=== PATIENT | female | born 1990 | race African-American/Black ===

== ENCOUNTER 2021-08-15 16:49 | Observation (INO) ==
[2021-08-15 18:22] LABS: Mean Corpuscular Hgb Conc 36.3 g/dL (32-36)
[2021-08-15] MEDS ORDERED: ONDANSETRON INJ 2 MG/ML 2 ML VIAL IV STA (18:49)
[2021-08-15] MEDS ORDERED: ALBUTEROL HFA 8 GM INHALER INH ONE (18:49)
[2021-08-15] MEDS ORDERED: SODIUM CHLORIDE 0.9% 1000ML 1,000 ML IV ONE (18:49)
[2021-08-15] MEDS ORDERED: ACETAMINOPHEN 1000 MG/100 ML IV IV STA (18:49)
[2021-08-15 18:54] LABS: Hematocrit (blood only) 29.5 % (37-47); Hemoglobin 10.7 g/dL (12.0-16.0); Mean Corpuscular Hemoglobin 27.6 pg (25-34); RDW Coefficient of Variation 15.1 % (11.5-14.5); RDW Standard Deviation 42.6 fL (36.4-46.3); Red Blood Count 3.88 M/uL (4.2-5.4); White Blood Count 6.75 K/uL (4.8-10.8)
--- NOTE | 2021-08-15 19:00 | Emergency Department Note ---
Impression & Plan Vomiting, Acute dehydration, COVID-19, ED Provider Note NAME: FRANDY ONEIL AGE: 31 SEX: F : 1990 ARRIVES VIA: Walk-In INFORMANT: [Patient] ED PROVIDER(S): [Haim Oconnor MD] CHIEF COMPLAINT: Illness HISTORY OF PRESENT ILLNESS: The patient is a 31-year-old female who has felt poorly for today. She has had a headache, body aches, chills and a bit of a cough. She has been vomiting. The patient is currently 17 weeks . The patient went to [employer], there was nothing wrong with her unborn child. She was sent here for evaluation after a urinalysis and COVID test were performed. The urinalysis was negative, the COVID test was positive. The patient is not vaccinated for COVID-19. The patient has had no sick contacts. She states that she cannot go home feeling this poorly. REVIEW OF SYSTEMS: See HPI for pertinent positives and negatives. A total of ten systems were reviewed and were otherwise negative. PMHx/PSHx: See Below SOCIAL HISTORY: See Below. PHYSICAL EXAM: GENERAL: Patient is in no acute distress. HEENT: No acute trauma, normocephalic atraumatic, mucous membranes moist, no nasal congestion, no scleral icterus. NECK: No stridor, no adenopathy, no meningismus, trachea is midline. LUNGS: Diminished breath sounds, no respiratory distress, breath sounds equal. No obvious wheeze. HEART: Tachycardic, subtle systolic murmur, regular rhythm. ABDOMEN: Soft, nontender, bowel sounds positive, no peritonitis. Gravid uterus. EXTREMITIES: No cyanosis or edema, full range of motion of all the joints withou t pain or difficulty, no signs for acute trauma. NEUROLOGIC: Oriented x 3, no acute motor or sensory deficits, no focal weakness. SKIN: No rash, no jaundice, no diaphoresis. DIFFERENTIAL DIAGNOSIS: Generalized viral illness, influenza, COVID-19, electrolyte imbalance, dehydrati on, UTI, pneumonia, among others. EMERGENCY DEPARTMENT COURSE/PROCEDURES: MEDICAL DECISION MAKING: There is no leukocytosis. A very mild anemia was noted. Platelet count was slightly low at 103, the lower platelet count has been documented before. Sodium was somewhat low at 133, no renal failure. No concerning liver enzyme elevation. Cardiac enzyme testing x1 did not suggest any acute cardiac injury. Chest film did not show pneumonia or CHF. On exam, the patient was tachycardic. She looked uncomfortable. She appeared dehydrated. Her uterus was gravid. The patient was given 2 L of IV saline, she received IV Zofran, IV Benadryl, IV Tylenol and albuterol via MDI. The patient is still tachycardic and feels poorly. She does not believe she can be discharged home in this condition. The COVID infection, her early , together have become overwhelming. The patient is in need of a hospital stay for hydration, nausea control, symptom control. Luckily, she is not hypoxic and does not appear to have pneumonia from her COVID-19 infection. I spoke with the patient and case management. The on-call hospitalist was kaveh onsulted. Past Med/Surg History Medical History Migraine Multigravida Prior with demise Full Term demise in 2009 Sickle cell trait Surgical History No significant past surgical history Social History Smoking Status: Former smoker Tobacco Type: Cigarettes Hx Alcohol Use: No Hx Substance Use: No Preferred Language: Persian marital status: Single Current Living Situation: Family Feels Safe at Home: Yes Allergies Allergies Allergy/AdvReac Type Severity Reaction Status Date / Time ibuprofen [From Motrin] Allergy Severe hives/throat Verified 08/15/21 21:41 [facility] Home Meds Home Medications Medication Instructions Recorded Confirmed clindamycin phosphate 1 % topical 1 applic TOPICAL BID 08/15/21 08/15/21 gel Results & Data (ED) Vital Signs Vital Signs - 24 hr 08/15/21 17:23 08/15/21 20:29 08/15/21 22:00 Temperature 38.8 C H Temperature Source Oral Pulse Rate 115 H Pulse Rate [Right Finger] 121 H 124 H Respiratory Rate 18 18 20 Respiratory Effort / Characteristics Non-Labored Non-Labored Respiratory Depth Normal Normal Normal Blood Pressure 95/57 L Blood Pressure [Right Arm] 109/66 120/82 Blood Pressure Mean 69 Blood Pressure Mean [Right Arm] 80 94 Pulse Oximetry 98 97 99 Oxygen Delivery Method Room Air Room Air Room Air Sepsis Recent Fever Within 48 Hours Yes Sepsis New/Unexplained Change in Mental Status No Sepsis Action Taken by Nursing No Action Required Home Medications Current Medication List: was personally reviewed by me Laboratory Data Attestation: I reviewed the patient's lab results. Result diagrams: 08/15/21 18:00 08/15/21 18:00 Lab Results 08/15/21 08/15/21 Range/Units 18:00 18:00 WBC 6.75 (4.8-10.8) K/uL RBC 3.88 L (4.2-5.4) M/uL Hgb 10.7 L (12.0-16.0) g/dL Hct 29.5 L (37-47) % MCV 76.0 L (80-100) fL MCH 27.6 (25-34) pg MCHC 36.3 H (32-36) g/dL RDW Std Deviation 42.6 (36.4-46.3) fL RDW Coeff of Riana 15.1 H (11.5-14.5) % Plt Count 103 L (130-400) K/uL Immature Gran % (Auto) 0.3 % Neut % (Auto) 87.7 % Lymph % (Auto) 8.3 % [place] % (Auto) 2.8 % Eos % (Auto) 0.9 % Baso % (Auto) 0.0 % Neut # (Auto) 5.92 (1.4-6.5) K/uL Lymph # (Auto) 0.56 L (1.2-3.4) K/uL [place] # (Auto) 0.19 (0.11-0.59) K/uL Eos # (Auto) 0.06 (0-0.5) K/uL Baso # (Auto) 0.00 (0-0.2) K/uL Immature Gran # (Auto) 0.02 (0.00-0.02) K/uL Platelet Estimate Decreased L (Normal) Sodium 133 L (136-145) mmol/L Potassium 3.8 (3.5-5.1) mmol/L Chloride 103 (98-107) mmol/L Carbon Dioxide 22 (21-32) mmol/L Anion Gap 8 (3-11) BUN 8 (6-23) mg/dl Creatinine 0.52 L (0.6-1.2) mg/dl Est Cr Clr Drug Dosing Not Reportable Est GFR ( Amer) 145.5 ml/min Est GFR (Non-Af Amer) 125.5 ml/min BUN/Creatinine Ratio 15.4 (10-20) Glucose 95 (70-99(Fasting)) mg/dl Calcium 8.5 (8.5-10.1) mg/dl Total Bilirubin 0.3 (0.2-1.0) mg/dl AST 11 L (13-39) U/L ALT 7 (7-52) U/L Alkaline Phosphatase 40 (34-104) U/L Troponin I High Sens < 2.3 (0-14) pg/ml Total Protein 6.6 (6.0-8.3) gm/dl Albumin 3.5 (3.4-5.0) gm/dl Globulin 3.1 (2.5-4.0) gm/dl Albumin/Globulin Ratio 1.1 (0.9-2) Administered Medications Sodium Chloride (Nss 1000ml) 500 mls @ 999 mls/hr IV .Q31M ONE Stop: 08/15/21 22:02 Last Admin: 08/15/21 21:54 Dose: 999 mls/hr Documented by: [id number] Discontinued Medications Acetaminophen (Acetaminophen 1000 Mg/100 Ml Iv) 1,000 mg IV NOW STA Stop: 08/15/21 18:50 Last Admin: 08/15/21 19:01 Dose: 1,000 mg Documented by: [id number] Albuterol (Albuterol Hfa 8 Gm Inhaler) 2 puffs INH NOW ONE Stop: 08/15/21 18:50 Last Admin: 08/15/21 19:02 Dose: 2 puffs Documented by: [id number] Diphenhydramine HCl (Diphenhydramine 50 Mg/Ml Vial) 12.5 mg IV NOW STA Stop: 08/15/21 21:33 Last Admin: 08/15/21 21:59 Dose: 12.5 mg Documented by: [id number] Sodium Chloride (Nss 1000ml) 1,000 mls @ 999 mls/hr IV .Q1H1M ONE Stop: 08/15/21 19:49 Last Infusion: 08/15/21 20:21 Dose: 0 mls/hr Documented by: [id number] Admin: 08/15/21 19:02 Dose: 999 mls/hr Documented by: [id number] Sodium Chloride (Nss 1000ml) 500 mls @ 999 mls/hr IV .Q31M ONE Stop: 08/15/21 20:44 Last Infusion: 08/15/21 21:48 Dose: 0 mls/hr Documented by: [id number] Admin: 08/15/21 20:56 Dose: 999 mls/hr Documented by: [id number] Ondansetron HCl (Ondansetron Inj 2 Mg/Ml 2 Ml Vial) 4 mg IV NOW STA Stop: 08/15/21 18:50 Last Admin: 08/15/21 19:02 Dose: 4 mg Documented by: [id number] Imaging Data Radiologist's Impression: Chest X-Ray 08/15/21 18:41 SINGLE VIEW CHEST CLINICAL HISTORY: Fever. FINDINGS: An AP, portable, upright chest radiograph is obtained. No prior studies are available for comparison at the time of dictation. The cardiom ediastinal silhouette is unremarkable. The lungs and pleural spaces are clear. No pneumothorax is seen. The bony thorax is grossly intact. IMPRESSION: No active disease in the chest. ACT 112: Negative or not required by law. Electronically signed by: Haim Arndt M.D. 08/15/2021 7:43 PM Discharge Plan Visit Data Chief Complaint: Illness Stated Complaint: VOMITING, COVID PENDING, FEVER ED Provider: Haim Oconnor Discharge Problem: Vomiting, Acute dehydration, COVID-19, Patient Disposition: Admitted As Inpatient Condition: Fair Forms Stand Alone Forms: [facility] [employer] Prescriptions Prescriptions: No Action clindamycin phosphate 1 % gel 1 applic TOPICAL BID RF: 0 Referrals Referrals: PCP,NO [Primary Care Provider] -
[2021-08-15 19:01] LABS: Eosinophils # (auto) 0.06 K/uL (0-0.5); Eosinophils % (auto) 0.9 %; Immature Granulocytes # (auto) 0.02 K/uL (0.00-0.02); Immature Granulocytes % (auto) 0.3 %; Lymphocytes # (auto) 0.56 K/uL (1.2-3.4); Lymphocytes % (auto) 8.3 %; Monocytes # (auto) 0.19 K/uL (0.11-0.59); Monocytes % (auto) 2.8 %; Neutrophils # (auto) 5.92 K/uL (1.4-6.5); Neutrophils % (auto) 87.7 %; Platelet Count 103 K/uL (130-400); Platelet Estimate Decreased (Normal)
[2021-08-15 19:35] LABS: Alanine Aminotransferase 7 U/L (7-52); Albumin Globulin Ratio 1.1 (0.9-2); Albumin Level 3.5 gm/dl (3.4-5.0); Alkaline Phosphatase 40 U/L (34-104); Anion Gap 8 (3-11); Aspartate Aminotransferase 11 U/L (13-39); BUN Creatinine Ratio 15.4 (10-20); Bilirubin,Total 0.3 mg/dl (0.2-1.0); Blood Urea Nitrogen 8 mg/dl (6-23); Calcium 8.5 mg/dl (8.5-10.1); Carbon Dioxide 22 mmol/L (21-32); Chloride 103 mmol/L (98-107); Est GFR (African American) 145.5 ml/min; Est GFR (Non-African American) 125.5 ml/min; Globulin 3.1 gm/dl (2.5-4.0); Glucose 95 mg/dl (70-99(Fasting)); Potassium 3.8 mmol/L (3.5-5.1); Sodium 133 mmol/L (136-145); Total Protein 6.6 gm/dl (6.0-8.3); Troponin I High Sensitivity < 2.3 pg/ml (0-14)
--- NOTE | 2021-08-15 19:45 | XRay Report ---
SINGLE VIEW CHEST CLINICAL HISTORY: Fever. FINDINGS: An AP, portable, upright chest radiograph is obtained. No prior studies are available for c omparison at the time of dictation. The cardiomediastinal silhouette is unremarkable. The lungs and p leural spaces are clear. No pneumothorax is seen. The bony thorax is grossly intact. IMPRESSION: No active disease in the chest. ACT 112: Negative or not required by law. Electronically signed by: Haim Arndt M.D. 08/15/2021 7:43 PM
[2021-08-15] MEDS ORDERED: SODIUM CHLORIDE 0.9% 1000ML 500 ML IV ONE ×2 (20:14→21:32)
[2021-08-15] MEDS ORDERED: diphenhydrAMINE 50 MG/ML VIAL IV STA (21:32)
[2021-08-15] MEDS ORDERED: LACTATED RINGER'S 1,000 ML IV STA (21:58)
[2021-08-15] MEDS ORDERED: ACETAMINOPHEN W/CODEINE #3 1 TAB PO STA (23:08)
[2021-08-16 00:51] LABS: Partial Thromboplastin Ratio 1.1; Partial Thromboplastin Time 29.3 Seconds (21.0-31.0)
--- NOTE | 2021-08-16 01:03 | History & Physical Report ---
Date of Service August 16, 2021 Assessment & Plan (1) Sepsis: Plan: Secondary to COVID-19 illness 17 weeks AGA, patient already seen by OB outpatient Chronic anemia, hemoglobin at baseline Chronic thrombocytopenia Past tobacco abuse Medical telemetry No indication for antibiotics/antiviral Rx/steroids for now Supportive management for COVID-19 illness DVT prophylaxis. SCDs Re: Thrombocytopenia Full code Text document was generated using MyStream voice recognition software. It may contain grammatical or spelling errors. Kindly contact undersigned for clarification of any documentation item in question. History of Present Illness Chief Complaint: Achy, COVID Primary Care Provider: Dr. Carbajal History obtained from patient and records. Medical history significant for sickle cell trait, past tobacco abuse. Patient currently 17 weeks age of gestation. 2 days history of not feeling well. Achy headache, body aches, chills, dry cough. Pleuritic chest pain with shortness of breath. Achy lower abdominal pain. 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 Patient has not received COVID-19 vaccination. Patient seen by lower in supervisor yesterday. Directed to ER for further evaluation. 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 Allergies Allergy/AdvReac Type Severity Reaction Status Date / Time ibuprofen [From Motrin] Allergy Severe hives/throat Verified 08/15/21 21:41 [facility] Home Medications Medication Instructions Recorded Confirmed Type clindamycin phosphate 1 % topical 1 applic TOPICAL BID 08/15/21 08/15/21 History gel Past Med/Surg History Medical History Migraine Multigravida Prior with demise Full Term demise in 2009 Sickle cell trait Surgical History No significant past surgical history Social History Smoking Status: Former smoker Tobacco Type: Cigarettes Second Hand Exposure: No; Do You Dip or Chew Tobacco: No; Tobacco Cessation Education Requested by Patient: No Hx Alcohol Use: No Hx Substance Use: No Preferred Language: Georgian Communication Ability: Effective [employer] Ha[employer] Feeder Required: No Beliefs That Will Affect Care: None marital status: Single Current Living Situation: Alone Current Living Situation Comment: Pt states it is just her and her children Other Information That Helps Us Care for You: No Feels Safe at Home: Yes Safety Concerns: Feels Safe At This Time Assistive Devices: None Review of Systems Review of Systems: As per HPI, all other systems reviewed and negative Physical Exam Physical Exam: GENERAL: uncomfortable, no respiratory distress SKIN: Pallor, warm HEENT: Pale palpebral conjunctivae, no ptosis, dry buccal mucosa NECK : Supple, no tenderness CHEST : CTA, no tenderness HEART : Tachycardic, no obvious murmurs ABDOMEN: Some distention, minimal hypogastric tenderness EXTREMITIES : No LE swelling/tenderness, no other conspicuous deformities noted NEUROLOGIC : Coherent, no facial asymmetry, no other gross focality Results & Data Results & [facility] ([facility]) Vital Signs (Past 12 Hours) Vital Signs Temp Pulse Pulse Resp BP BP Pulse Ox 08/15/21 22:00 124 H 20 120/82 99 08/15/21 20:29 121 H 18 109/66 97 08/15/21 17:23 38.8 C H 115 H 18 95/57 L 98 Laboratory Results Laboratory Results WBC 6.75 K/uL (4.8-10.8) 08/15/21 18:00 RBC 3.88 M/uL (4.2-5.4) L 08/15/21 18:00 Hgb 10.7 g/dL (12.0-16.0) L 08/15/21 18:00 Hct 29.5 % (37-47) L 08/15/21 18:00 MCV 76.0 fL (80-100) L 08/15/21 18:00 MCH 27.6 pg (25-34) 08/15/21 18:00 MCHC 36.3 g/dL (32-36) H 08/15/21 18:00 RDW Std Deviation 42.6 fL (36.4-46.3) 08/15/21 18:00 RDW Coeff of Riana 15.1 % (11.5-14.5) H 08/15/21 18:00 Plt Count 103 K/uL (130-400) L 08/15/21 18:00 Immature Gran % (Auto) 0.3 % 08/15/21 18:00 Neut % (Auto) 87.7 % 08/15/21 18:00 Lymph % (Auto) 8.3 % 08/15/21 18:00 [place] % (Auto) 2.8 % 08/15/21 18:00 Eos % (Auto) 0.9 % 08/15/21 18:00 Baso % (Auto) 0.0 % 08/15/21 18:00 Neut # (Auto) 5.92 K/uL (1.4-6.5) 08/15/21 18:00 Lymph # (Auto) 0.56 K/uL (1.2-3.4) L 08/15/21 18:00 [place] # (Auto) 0.19 K/uL (0.11-0.59) 08/15/21 18:00 Eos # (Auto) 0.06 K/uL (0-0.5) 08/15/21 18:00 Baso # (Auto) 0.00 K/uL (0-0.2) 08/15/21 18:00 Immature Gran # (Auto) 0.02 K/uL (0.00-0.02) 08/15/21 18:00 Platelet Estimate Decreased (Normal) L 08/15/21 18:00 APTT 29.3 Seconds (21.0-31.0) 08/16/21 00:16 PTT Ratio 1.1 08/16/21 00:16 Sodium 133 mmol/L (136-145) L 08/15/21 18:00 Potassium 3.8 mmol/L (3.5-5.1) 08/15/21 18:00 Chloride 103 mmol/L (98-107) 08/15/21 18:00 Carbon Dioxide 22 mmol/L (21-32) 08/15/21 18:00 Anion Gap 8 (3-11) 08/15/21 18:00 BUN 8 mg/dl (6-23) 08/15/21 18:00 Creatinine 0.52 mg/dl (0.6-1.2) L 08/15/21 18:00 Est Cr Clr Drug Dosing Not Reportable 08/15/21 18:00 Est GFR ( Amer) 145.5 ml/min 08/15/21 18:00 Est GFR (Non-Af Amer) 125.5 ml/min 08/15/21 18:00 BUN/Creatinine Ratio 15.4 (10-20) 08/15/21 18:00 Glucose 95 mg/dl (70-99(Fasting)) 08/15/21 18:00 Lactate 1.1 mmol/L (0.4-2.0) 08/16/21 00:16 Calcium 8.5 mg/dl (8.5-10.1) 08/15/21 18:00 Magnesium 1.5 mg/dl (1.7-2.4) L 08/15/21 18:00 Total Bilirubin 0.3 mg/dl (0.2-1.0) 08/15/21 18:00 AST 11 U/L (13-39) L 08/15/21 18:00 ALT 7 U/L (7-52) 08/15/21 18:00 Alkaline Phosphatase 40 U/L (34-104) 08/15/21 18:00 Troponin I High Sens < 2.3 pg/ml (0-14) 08/15/21 18:00 Total Protein 6.6 gm/dl (6.0-8.3) 08/15/21 18:00 Albumin 3.5 gm/dl (3.4-5.0) 08/15/21 18:00 Globulin 3.1 gm/dl (2.5-4.0) 08/15/21 18:00 Albumin/Globulin Ratio 1.1 (0.9-2) 08/15/21 18:00 Lipase 8 U/L (11-82) L 08/15/21 18:00 Procalcitonin < 0.05 ng/ml (0-0.5) 08/15/21 18:00 Impressions Chest X-Ray 08/15/21 18:41 SINGLE VIEW CHEST CLINICAL HISTORY: Fever. FINDINGS: An AP, portable, upright chest radiograph is obtained. No prior studies are available for comparison at the time of dictation. The cardiomediastinal silhouette is unremarkable. The lungs and pleural spaces are clear. No pneumothorax is seen. The bony thorax is grossly intact. IMPRESSION: No active disease in the chest. ACT 112: Negative or not required by law. Electronically signed by: Haim Arndt M.D. 08/15/2021 7:[address] head initial read: No intracranial hemorrhage. No significant mass effect or midline shift. No evidence for cortical infarct. The paranasal sinuses and mastoid air cells are well-aerate CT chest initial read: Accounting for limitationswith respiratoryartifact. There is no obvious large/central pulmonary emboli. Evaluation of the distal subsegmental pulmonaryarteries is limited with the majority nondiagnostic in quality. No focal airspace consolidation. No pleural effusion or pneumothorax. The thoracic aorta and cardiac chambers are unremarkable. No pericardial effusion. Nonspecific subcentimeter preaortic lymph nodes. No significant mediastinal or hilar adenopathy. No acute osseous or significant overlying soft tissue abnormality CT abdomen pelvis refused by patient EKG as per my interpretation:Rate 125, sinus tachycardia, normal axis, no ischemia
[2021-08-16] MEDS ORDERED: OPTIRAY 320 125ml IV ONE (01:10)
[2021-08-16] MEDS ORDERED: LACTATED RINGER'S 1,000 ML IV ONE ×2 (04:23→19:17)
[2021-08-16] MEDS ORDERED: ONDANSETRON INJ 2 MG/ML 2 ML VIAL IV PRN (04:23)
[2021-08-16] MEDS: ACETAMINOPHEN 325 MG TAB PO PRN ×3 (05:07→19:29)
[2021-08-16 06:48] LABS: Appearance Urine Clear (Clear); Bilirubin Urine Negative (Negative); Blood Urine Negative (Negative); Color Urine Yellow; Glucose Urine UA Negative (Negative); Ketones Urine 2+ (Negative); Leukocyte Esterase Urine Negative (Negative); Nitrite Urine Negative (Negative); Protein Urine Negative (Negative); Specific Gravity Urine 1.025 (1.000-1.030); Urobilinogen Urine Negative (Negative); pH Urine 6.5 (4.5-7.5)
--- NOTE | 2021-08-16 07:02 | CT Scan Report ---
CT OF THE HEAD WITHOUT CONTRAST CLINICAL HISTORY: Headache. COMPARISON STUDY: No previous studies for comparison. TECHNIQUE: Helical axial images of the head were obtained without IV contrast. Automated exposure con trol was utilized for the study. A dose lowering technique was utilized adhering to the principles o f ALARA. FINDINGS: Study is mildly compromised by motion artifact. No acute intracranial hemorrhage, midline s hift or mass effect is present. The ventricular system is unremarkable. The basal cisterns are patent . No extra-axial collections are present. There are no findings to suggest acute dural sinus thrombos is or acute territorial infarct. No significant calvarial abnormalities are present. There is minimal ethmoid sinus mucosal thickening. Visualized portions of the adenoids are prominent. IMPRESSION: No acute intracranial findings. ACT 112: Negative or not required by law. Electronically signed by: Howard Valerio M.D. 08/16/2021 7:00 AM
[2021-08-16 07:07] LABS: Mean Corpuscular Hgb Conc 36.1 g/dL (32-36)
--- NOTE | 2021-08-16 07:13 | CT Scan Report ---
CT ANGIOGRAPHY OF THE CHEST, PULMONARY EMBOLUS PROTOCOL CLINICAL HISTORY: Chest pain. Shortness of breath. . COMPARISON STUDY: Chest radiograph August 15, 2021. TECHNIQUE: Following IV administration of 110 mL of Optiray, helical axial images of the chest were o btained utilizing the pulmonary embolus protocol. Maximal intensity projections and sagittal and cor onal reformats were viewed on an independent 3D workstation. IV contrast was administered without co mplication. Automated exposure control was utilized for the study. A dose lowering technique was ut ilized adhering to the principles of ALARA. CT DOSE: 537.48 mGy.cm FINDINGS: This exam is significantly compromised by respiratory motion artifact and suboptimal vascu lar opacification. No central pulmonary embolus is identified. The lobar, segmental and subsegmental pulmonary arteries are suboptimally assessed on this exam. There is no thoracic aortic dissection. Si ze of the heart is normal. Possible small hiatal hernia is present. Prominent mediastinal lymph nodes are likely benign. There is no axillary lymphadenopathy. There is no pneumothorax or pleural effusio n. Groundglass opacities within the lungs favor atelectasis. No consolidation to suggest pneumonia. C entral airways are patent. No acute fracture or suspicious lesion within the visualized bony thorax i s noted. Asymmetric enlargement of the left thyroid lobe is noted. There is a probable left lobe thyr oid nodule which measures approximately 2.6 cm. Visualized portions of the upper abdomen demonstrate splenomegaly, incompletely imaged on this exam. A few hypodensities within the liver favor cysts. IMPRESSION: 1. Exam significantly compromised by artifact, as described above. No central pulmonary emboli. Remai nder of pulmonary arteries suboptimally assessed although no pulmonary emboli identified. 2. No consolidation to suggest pneumonia. 3. Asymmetric enlargement of the left thyroid lobe with suspected left lobe thyroid nodule, measuring approximately 2.6 cm. Nonemergent outpatient thyroid ultrasound is recommended. 4. Splenomegaly. ACT 112: Positive. There are findings on this exam that require communication between the performing entity and the patient following Patient Test Result Information Act ([place] Act 112) guidelines. Electronically signed by: Howard Valerio M.D. 08/16/2021 7:12 AM
[2021-08-16 07:28] LABS: BUN Creatinine Ratio 8.2 (10-20); Calcium 7.6 mg/dl (8.5-10.1); Creatinine Clr Calc Pharmacy 169.5 ml/min; Est GFR (African American) 148.4 ml/min; Magnesium 1.4 mg/dl (1.7-2.4)
[2021-08-16 07:43] LABS: Hematocrit (blood only) 25.5 % (37-47); Hemoglobin 9.2 g/dL (12.0-16.0); Mean Corpuscular Hemoglobin 27.5 pg (25-34); Mean Corpuscular Volume 76.3 fL (80-100); RDW Coefficient of Variation 15.1 % (11.5-14.5); RDW Standard Deviation 42.9 fL (36.4-46.3); Red Blood Count 3.34 M/uL (4.2-5.4)
[2021-08-16 08:22] LABS: Immature Granulocytes # (auto) 0.02 K/uL (0.00-0.02); Immature Granulocytes % (auto) 0.5 %; Lymphocytes # (auto) 0.29 K/uL (1.2-3.4); Lymphocytes % (auto) 7.6 %; Monocytes # (auto) 0.46 K/uL (0.11-0.59); Monocytes % (auto) 12.1 %; Neutrophils # (auto) 3.03 K/uL (1.4-6.5); Neutrophils % (auto) 79.8 %; Platelet Count 71 K/uL (130-400); Platelet Estimate Decreased (Normal)
--- NOTE | 2021-08-16 09:13 | Electrocardiogram Report ---
Test Reason : Blood Pressure : / mmHG Vent. Rate : 124 BPM Atrial Rate : 124 BPM P-R Int : 180 ms QRS Dur : 078 ms QT Int : 284 ms P-R-T Axes : 065 033 025 degrees QTc Int : 408 ms Poor data quality, interpretation may be adversely affected Sinus tachycardia Diffuse Minor Nonspecific T wave abnormality Abnormal ECG No previous ECGs available Confirmed by Prosper Bello ([id number]) on 08/16/2021 9:12:34 AM Referred By: REFERRED SELF Confirmed By:Prosper Bello
[2021-08-16] MEDS ORDERED: POTASSIUM ACETATE/NSS 10 MEQ/105 ML BAG IV STA (14:55)
[2021-08-16] MEDS ORDERED: MAGNESIUM SULFATE / D5W 1 GM/100 ML BAG IV ONE (14:55)
[2021-08-16] MEDS: ACETAMINOPHEN W/CODEINE #3 1 TAB PO PRN ×2 (16:48→22:06)
[2021-08-16] MEDS: POTASSIUM ACETATE/NSS 10 MEQ/105 ML BAG IV SCH ×2 (16:49→19:29)
--- NOTE | 2021-08-16 17:37 | Hospitalist Progress Note ---
Date of Service August 16, 2021 Assessment & Plan (1) Sepsis: Plan: Secondary to COVID-19 illness No known source identified She has had denied any respiratory and recently Loss of taste and loss of smell with cough and sneezing No shortness of breath Saturating normally on room air The patient is not vaccinated No indication for antibiotics/antiviral Rx/steroids for now Supportive management for COVID-19 illness 17 weeks AGA, patient already seen by OB outpatient Chronic anemia, hemoglobin at baseline Chronic thrombocytopenia Past tobacco abuse DVT prophylaxis. SCDs Re: Thrombocytopenia Full code Admission and Anticipated Discharge Date Admission Date: August 16, 2021 Subjective 08/16/2021 The patient was seen and examined in medical floor and in the COVID room She complains of headache and loss of smell and test Has cough with sneezing No shortness of breath and saturating normally on room air Review of Systems Review of Systems: All systems reviewed and are unremarkable except as noted below Physical Exam Physical Exam: Lying in bed without any acute distress Constitutional: well developed, well nourished, + ill appearing and + obese Eyes: PERRL, conjunctivae normal, anicteric sclerae ENMT: external ear and nose normal, oropharynx normal Neck: trachea midline, no thyromegaly Respiratory: no respiratory distress Auscultation: lungs clear to auscultation bilaterally; no crackles Cardiovascular: Rate/Rhythm: regular rate, regular rhythm and + tachycardic Heart Sounds: normal S1 and normal S2; no murmur Extremities: + edema (Trace edema bilaterally) Gastrointestinal (Abdomen): Inspection/Auscultation: + abdomen distended and normal bowel sounds Musculoskeletal: No acute arthritis in any joint Neurologic: Alert, awake and oriented x3. No focal sensory or no motor deficit appreciated Lymphatic: no cervical or axillary lymphadenopathy Results & Data Results & Data ([facility]) Vital Signs (Past 12 Hours) Vital Signs Temp Pulse Pulse Resp BP Pulse Ox 08/16/21 15:30 37.7 C H 118 H 20 120/76 99 08/16/21 14:19 115 H 08/16/21 14:12 37.2 C 20 114/77 98 08/16/21 11:55 37.3 C 111 H 20 103/71 98 08/16/21 10:00 38.3 C H 117 H 20 106/64 99 08/16/21 06:10 125 H Laboratory Results Short CBC 08/15/21 08/16/21 Range/Units 18:00 06:21 WBC 6.75 3.80 L (4.8-10.8) K/uL Hgb 10.7 L 9.2 L (12.0-16.0) g/dL Hct 29.5 L 25.5 L (37-47) % Plt Count 103 L 71 L (130-400) K/uL BMP 08/15/21 08/16/21 18:00 06:21 Sodium 133 L 134 L Potassium 3.8 3.0 L D Chloride 103 107 Carbon Dioxide 22 20 L BUN 8 4 L Creatinine 0.52 L 0.49 L Glucose 95 130 H Calcium 8.5 7.6 L Liver Function 08/15/21 Range/Units 18:00 Total Bilirubin 0.3 (0.2-1.0) mg/dl AST 11 L (13-39) U/L ALT 7 (7-52) U/L Alkaline Phosphatase 40 (34-104) U/L Albumin 3.5 (3.4-5.0) gm/dl Urine 08/16/21 Range/Units 05:57 Urine Color Yellow Urine Appearance Clear (Clear) Urine pH 6.5 (4.5-7.5) Ur Specific [place] 1.025 (1.000-1.030) Urine Protein Negative (Negative) Urine Glucose (UA) Negative (Negative) Medications Administered Current Inpatient Medications Acetaminophen (Acetaminophen 325 Mg Tab) 650 mg PO Q4H PRN PRN Reason: Pain or Fever Stop: 09/15/21 04:22 Last Admin: 08/16/21 10:00 Dose: 650 mg Documented by: Acetaminophen/Codeine Phosphate (Acetaminophen W/Codeine #3 1 Tab) 1 tab PO QID PRN PRN Reason: pain not relieved by tylenol Stop: 09/15/21 04:22 Last Admin: 08/16/21 16:48 Dose: 1 tab Documented by: Potassium Acetate (Potassium Acetate/Nss) 10 meq in 105 mls @ 105 mls/hr IV Q1H KJ Stop: 08/16/21 18:29 Last Admin: 08/16/21 16:49 Dose: 105 mls/hr Documented by: Ondansetron HCl (Ondansetron Inj 2 Mg/Ml 2 Ml Vial) 4 mg IV Q6H PRN PRN Reason: nv Stop: 09/15/21 04:22
[2021-08-16 23:17] LABS: Amphetamines+Metham, Urine Neg (Neg); Barbiturates, Urine Neg (Neg); Benzodiazepine, Urine Neg (Neg); Cocaine, Urine Neg (Neg); MDMA (Ecstacy), Urine Neg (Neg); Methadone, Urine Neg (Neg); Opiate, Urine Pos (Neg); Phencyclidine, Urine Neg (Neg)
[2021-08-17] MEDS: ACETAMINOPHEN 325 MG TAB PO PRN (06:24)
[2021-08-17] MEDS ORDERED: POTASSIUM CHLORIDE PWD 20 MEQ PACK PO STA (06:30)
[2021-08-17] MEDS ORDERED: LACTATED RINGER'S 1,000 ML IV ONE (06:32)
[2021-08-17 06:45] LABS: Mean Corpuscular Hgb Conc 36.3 g/dL (32-36)
[2021-08-17 06:53] LABS: Hematocrit (blood only) 28.1 % (37-47); Hemoglobin 10.2 g/dL (12.0-16.0); Mean Corpuscular Hemoglobin 27.6 pg (25-34); Mean Corpuscular Volume 76.2 fL (80-100); RDW Coefficient of Variation 15.1 % (11.5-14.5); RDW Standard Deviation 42.9 fL (36.4-46.3); Red Blood Count 3.69 M/uL (4.2-5.4); White Blood Count 2.35 K/uL (4.8-10.8)
[2021-08-17 07:11] LABS: Anion Gap 4 (3-11); BUN Creatinine Ratio 9.3 (10-20); Blood Urea Nitrogen 4 mg/dl (6-23); Carbon Dioxide 26 mmol/L (21-32); Chloride 105 mmol/L (98-107); Creatinine Clr Calc Pharmacy 191.2 ml/min; Est GFR (African American) > 150.0 ml/min; Est GFR (Non-African American) 133.6 ml/min; Glucose 97 mg/dl (70-99(Fasting)); Magnesium 1.5 mg/dl (1.7-2.4); Phosphorus 3.1 mg/dl (2.5-4.9); Potassium 3.9 mmol/L (3.5-5.1); Sodium 135 mmol/L (136-145)
[2021-08-17 07:13] LABS: Platelet Count 100 K/uL (130-400)
[2021-08-17 07:14] LABS: Lymphocytes # (auto) 0.64 K/uL (1.2-3.4); Lymphocytes % (auto) 27.2 %; Monocytes # (auto) 0.21 K/uL (0.11-0.59); Monocytes % (auto) 8.9 %; Neutrophils % (auto) 63.9 %; Platelet Estimate Decreased (Normal)
[2021-08-17] MEDS: MAGNESIUM SULFATE / D5W 1 GM/100 ML BAG IV SCH ×3 (07:20→11:38)
[2021-08-17] MEDS ORDERED: POTASSIUM CHLORIDE PWD 20 MEQ PACK PO ONE ×2 (08:30→10:00)
--- NOTE | 2021-08-17 11:31 | Hospitalist Progress Note ---
Date of Service August 17, 2021 Assessment & Plan (1) Sepsis: Plan: Secondary to COVID-19 illness No bacterial source identified No shortness of breath Saturating normally on room air The patient is not vaccinated against covid No indication for antibiotics/antiviral Rx/steroids for now Supportive management for COVID-19 illness Considered meningitis with fever, headache and photphobia, however, she was able to tolerate the light and perk up a bit after we started talking together. She is fatigued but not ill-appearing and the neck stiffness was mild and on one side only. She had no issues sitting up in bed and is improved since admission without abx. Would not want to put her through an LP as this is low likelihood. (2) COVID-19: Plan: Apparently unvaccinated. Plan as above. Tachycardia has improved and she is afebrile this morning. Last fever was last night. Cont supportive care. PT/OT for weakness that is generalized. (3) Hypomagnesemia: Plan: replacing with IV supplementation now. (4) Vomiting: Plan: presumably from covid-19 infection and is now resolved. Replace lytes as needed. She is getting IVF which will stop now. Tolerating diet now. (5) : Plan: Appears to be going well. OB declined the consult request as they saw her in the office two days prior. heart tones q shift. Known h/o still born in 2009 so patient is understandable concerned, however, when asked how is the going and if she feels things are going well she replies "I don't know" despite having a history of five pregnancies in the past. (6) DVT prophylaxis: Plan: SCDs/ambulation Full code Dispo- to home when feeling better. Yajaira Williamson DO [facility] Hospitalist Admission and Anticipated Discharge Date Admission Date: August 16, 2021 Subjective 31 yo female in her second trimester presents with symptoms of covid 19 Heart rate has improved after IVF Does not qualify for any covid specific therapies reported vomiting yesterday, but is currently tolerating food Mg 1.5 and she is receiving some replacement now She reports feeling generally weak with a generalized headache She reports the light causing pain to her eyes and has a sleep mask covering her eyes Notably she was fine with the light once they got adjusted and they are not red or appearing irritated She denies any abdominal pain Denies any BM Denies any vaginal discharge Denies any cough, SOB and has remained afebrile overnight Tells me that she feels weak and that she prefers to stay because she has 5 kids to take care of at home. Review of Systems Review of Systems: All systems were reviewed and negative except as indicated above. Physical Exam Physical Exam: CONSTITUTIONAL: WNWD, vitals as above, generally well- appearing, NAD EYES: pupils are round and equal bilaterally, normal conjunctivae, no scleral icterus ENT: external ear and nose normal, oropharynx clear, MMM NECK: trachea midline RESPIRATORY: clear to auscultation bilaterally, no crackles, rales or wheezes, normal respiratory effort CARDIOVASCULAR: regular rate and rhythm, S1 and 2 heard without murmurs, gallops or rubs, no JVD, no peripheral edema CHEST: inspection of chest was normal GASTROINTESTINAL: soft, nontender, ND, gravid uterus, no guarding. MUSCULOSKELETAL: strength 5/5 throughout, she is able to sit up in bed independently without issue, head is normocephalic and atraumatic SKIN: warm and dry NEUROLOGIC: CN 2-12 grossly intact, no sensory deficit, normal cognition, normal speech, no tremor, no gross focal deficits. PSYCHIATRIC: alert cooperative and oriented to person, place and time. Euth ymic mood, makes good eye contact, language grossly intact, recent and remote memory grossly intact. Results & Data Results & Data ([facility]) Vital Signs (Past 12 Hours) Vital Signs Temp Pulse Pulse Resp BP Pulse Ox 08/17/21 06:25 37.5 C 103 H 20 107/71 94 08/17/21 06:13 92 H 08/17/21 03:53 37.3 C 96 H 20 110/72 97 Laboratory Results Short CBC 08/17/21 Range/Units 06:28 WBC 2.35 L (4.8-10.8) K/uL Hgb 10.2 L (12.0-16.0) g/dL Hct 28.1 L (37-47) % Plt Count 100 L (130-400) K/uL BMP 08/17/21 06:28 Sodium 135 L Potassium 3.9 D Chloride 105 Carbon Dioxide 26 BUN 4 L Creatinine 0.43 L Glucose 97 Calcium 8.0 L Liver Function 08/17/21 Range/Units 06:28 Albumin 3.0 L (3.4-5.0) gm/dl Medications Administered Current Inpatient Medications Acetaminophen (Acetaminophen 325 Mg Tab) 650 mg PO Q4H PRN PRN Reason: Pain or Fever Stop: 09/15/21 04:22 Last Admin: 08/17/21 06:24 Dose: 650 mg Documented by: Acetaminophen/Codeine Phosphate (Acetaminophen W/Codeine #3 1 Tab) 1 tab PO QID PRN PRN Reason: pain not relieved by tylenol Stop: 09/15/21 04:22 Last Admin: 08/16/21 22:06 Dose: 1 tab Documented by: Magnesium Sulfate/Dextrose (Magnesium Sulfate / D5w) 1 gm in 100 mls @ 50 mls/hr IV Q2H KJ Stop: 08/17/21 12:29 Last Admin: 08/17/21 09:37 Dose: 50 mls/hr Documented by: Lactated Ringer's (Lr) 1,000 mls @ 80 mls/hr IV .[id number] ONE Stop: 08/17/21 19:01 Last Admin: 08/17/21 09:38 Dose: 80 mls/hr Documented by: Ondansetron HCl (Ondansetron Inj 2 Mg/Ml 2 Ml Vial) 4 mg IV Q6H PRN PRN Reason: nv Stop: 09/15/21 04:22 (1) Weeks of gestation: 17 weeks Qualified Code(s): Z3A.17 - 17 weeks gestation of (2) Vomiting Nausea presence: with nausea Vomiting type: unspecified Qualified Code(s): R11.2 - Nausea with vomiting, unspecified
[2021-08-18 07:47] LABS: Mean Corpuscular Hgb Conc 35.6 g/dL (32-36)
[2021-08-18 07:52] LABS: Hematocrit (blood only) 32.6 % (37-47); Hemoglobin 11.6 g/dL (12.0-16.0); Mean Corpuscular Hemoglobin 27.5 pg (25-34); Mean Corpuscular Volume 77.3 fL (80-100); RDW Coefficient of Variation 14.9 % (11.5-14.5); Red Blood Count 4.22 M/uL (4.2-5.4); White Blood Count 2.79 K/uL (4.8-10.8)
[2021-08-18 08:10] LABS: Basophils # (auto) 0.01 K/uL (0-0.2); Basophils % (auto) 0.4 %; Eosinophils # (auto) 0.01 K/uL (0-0.5); Eosinophils % (auto) 0.4 %; Immature Granulocytes # (auto) 0.01 K/uL (0.00-0.02); Immature Granulocytes % (auto) 0.4 %; Lymphocytes # (auto) 1.02 K/uL (1.2-3.4); Lymphocytes % (auto) 36.6 %; Monocytes # (auto) 0.18 K/uL (0.11-0.59); Monocytes % (auto) 6.5 %; Neutrophils # (auto) 1.56 K/uL (1.4-6.5); Neutrophils % (auto) 55.7 %; Platelet Count 92 K/uL (130-400); Platelet Estimate Decreased (Normal)
[2021-08-18 08:11] LABS: Anion Gap 6 (3-11); Blood Urea Nitrogen 6 mg/dl (6-23); C Reactive Protein 0.64 mg/dl (0-0.5); Calcium 8.3 mg/dl (8.5-10.1); Carbon Dioxide 24 mmol/L (21-32); Chloride 105 mmol/L (98-107); Creatinine Clr Calc Pharmacy 189.1 ml/min; Est GFR (African American) > 150.0 ml/min; Est GFR (Non-African American) 133.6 ml/min; Glucose 83 mg/dl (70-99(Fasting)); Magnesium 1.5 mg/dl (1.7-2.4); Potassium 3.7 mmol/L (3.5-5.1); Sodium 135 mmol/L (136-145)
[2021-08-18] MEDS ORDERED: MAGNESIUM SULFATE 50% 2 GM in SODIUM CHLORIDE 0.9% 500 ML IV SCH (12:30)
--- NOTE | 2021-08-18 14:56 | Discharge Summary ---
Date of Service August 18, 2021 Admission HPI Per Admitting Provider History obtained from patient and records. Medical history significant for sickle cell trait, past tobacco abuse. Patient currently 17 weeks age of gestation. 2 days history of not feeling well. Achy headache, body aches, chills, dry cough. Pleuritic chest pain with shortness of breath. Achy lower abdominal pain. 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 Patient has not received COVID-19 vaccination. Patient seen by film rental clerk yesterday. Directed to ER for further evaluation. 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 Principal Diagnosis sepsis Covid-19 infection pancytopenia Discharge Exam CONSTITUTIONAL: WNWD, vitals as above, generally well-appearing, NAD EYES: pupils are round and equal bilaterally, normal conjunctivae, no scleral icterus ENT: external ear and nose normal, oropharynx clear, MMM NECK: trachea midline RESPIRATORY: clear to auscultation bilaterally, no crackles, rales or wheezes, normal respiratory effort CARDIOVASCULAR: regular rate and rhythm, S1 and 2 heard without murmurs, gallops or rubs, no JVD, no peripheral edema CHEST: inspection of chest was normal GASTROINTESTINAL: soft, nontender, ND, gravid uterus, no guarding. MUSCULOSKELETAL: strength 5/5 throughout, she is able to sit up in bed independently without issue, head is normocephalic and atraumatic SKIN: warm and dry NEUROLOGIC: CN 2-12 grossly intact, no sensory deficit, normal cognition, normal speech, no tremor, no gross focal deficits. PSYCHIATRIC: alert cooperative and oriented to person, place and time. Euthymic mood, makes good eye contact, language grossly intact, recent and remote memory grossly intact. Discharge Data Allergies Allergy/AdvReac Type Severity Reaction Status Date / Time ibuprofen [From Motrin] Allergy Severe hives/throat Verified 08/15/21 21:41 swells Consultations 08/15/21 21:46 ED Decision to Admit Stat Ordered Studies 08/15/21 23:15 CT head/brain wo con Urgent 08/15/21 23:16 CT angio chest PE protocol Urgent Hospital Course (1) Sepsis: Secondary to COVID-19 illness No bacterial source identified No shortness of breath Saturating normally on room air The patient is not vaccinated against covid No indication for antibiotics/antiviral Rx/steroids for now Supportive management for COVID-19 illness Considered meningitis with fever, headache and photophobia, however, she was able to tolerate the light and perk up a bit after we started talking together. She is fatigued but not ill-appearing and the neck stiffness was mild and on one side only. She had no issues sitting up in bed and is improved since admission without abx. Would not want to put her through an LP as this is low likelihood. Tachycardia resolved with time and supportive care. The following day she was feeling significantly improved and had a brighter, more energetic disposition. She was fever free for > 24 hours prior to discharge. Sent home in stable condition with education to observe current public health guidance to reduce the spread covid-19 (2) COVID-19: (3) Hypomagnesemia: intravenoous magnesium given during her hospital stay (4) Vomiting: presumably from covid-19 infection and resolved on HD1. Replace lytes as needed. She was eating normally at discharge. (5) : (6) Pancytopenia: Total Time Total Time Spent Total Time Spent (In Minutes): 60 Discharge Plan Discharge Items Patient Disposition: Home - Self-Care Reason For Visit: SEPSIS, COVID Discharge Diagnosis: sepsis Covid-19 infection pancytopenia Condition on Discharge: Good Activity: Resume your previous activity Non-emergency contact: Primary Care Provider Call non-emergency contact if: you have any medication questions, your symptoms worsen, your pain is not controlled, your pain is worsening, your pain is unusual for you and your pain is concerning for you Follow-up/Referrals: Damian Barragan DO [Primary Care Provider] - 08/26/21 11:20 am Diet: Regular Addtl Attending Provider Instructions: Please take all medications as instructed on discharge list below. You have low cell counts in your blood. A referral to hematology is recommended for workup of this. This referral may be placed by your primary care provider (PCP) on follow-up. You were found to have low magnesium levels while in the hospital and received some replacement while admitted. It is recommended to have this rechecked as outpatient which may be ordered by your PCP on follow-up. Please follow-up with your PCP at the date and time above to ensure you are still doing well after returning home, and to get a repeat magnesium level and obtain referrals needed. Per current public health guidelines, please remain on home isolation for 10 days after symptom onset from covid-19 infection. After this ten day period is over, you may return to public activities such as visiting public places and returning to work. If you are still having symptoms, please extend your home isolation for 24 hours after your symptoms have resolved. Please consider getting vaccinated against covid-19 to protect yourself from future infections. It was a pleasure taking care of you! Please call if you have any questions or problems. You can reach a [facility] hospitalist on duty at [facility] 24 hours a day by calling [phone]. Take care of yourself. Yajaira Williamson DO [facility] Hospitalist Pending Studies at Discharge: No Stand-Alone Forms: My [facility] Medications and DC Order Prescriptions: Continued clindamycin phosphate 1 % gel 1 applic TOPICAL BID RF: 0 Discharge Orders: Discharge Order (Routine); Ordered 08/18/21 Ordered By: Yajaira Williamson Admission Data Admit Date/Time: 08/16/21 04:17 Attending Provider: Yajaira Williamson Admit Provider: Samson Cardoza Primary Care Provider: Damian Barragan Other Providers: Samson Cardoza Other Interventions: Discharge Summary Assessment (RN) Last Done: 08/18/21 15:16
[2021-08-19 09:51] LABS: Codeine Urine 850 ng/mL (<50); Hydrocodone Urine NEGATIVE ng/mL (<50); Hydromor Urine NEGATIVE ng/mL (<50); Morphine Urine NEGATIVE ng/mL (<50); Norhydrocodone Conf Ur NEGATIVE ng/mL (<50); Noroxycodone Urine NEGATIVE ng/mL (<50); Oxycodone Urine NEGATIVE ng/mL (<50); Oxymorph Urine NEGATIVE ng/mL (<50)
== END 2021-08-18 17:36 | disposition home or self-care (01) | DRG 831 ==
LOC: ED 16:49 → 2W 08-16 03:40 → INTOOBSV 08-16 04:17 → 2W 08-16 04:17 → SUATTDRO 08-16 04:17

== ENCOUNTER 2022-01-16 12:55 | Inpatient (IN) ==
[2022-01-17] MEDS ORDERED: OXYTOCIN 30 UNITS/500 ML BAG IV PRN ×3 (08:50→16:25)
[2022-01-17] MEDS ORDERED: LIDOCAINE 1% LOCAL 20 ML VIAL INFIL PRN (08:50)
--- NOTE | 2022-01-17 08:56 | History & Physical Report ---
Date of Service January 17, 2022 Assessment & Plan (1) Elective induction of labor planned: (2) Multigravida: (3) History of IUFD: Plan: 31 yo at 39.1 wks here for IOL VSS Afebrile FHR reassuring GBS neg Cervix favorable Plan to admit, labs, IV Oxytocin and AROM when able, desires epidural AJYESH when she has pain All questions were answered. Admission and Anticipated Discharge Date Admission Date: January 17, 2022 History of Present Illness Primary Care Provider: Damian Barragan DO Patient is a 31 yo at 39.1 wks with h/o IUFD in 2009, here for scheduled IOL No complaints No regular ctxs/ VB/LOF +FM's Her has been complicated by above and Smoker, 3 cig/ day and Sicle cell trait, anemia Recevied IV Iron Allergies Allergy/AdvReac Type Severity Reaction Status Date / Time ibuprofen [From Motrin] Allergy Severe hives/throat Verified 08/15/21 21:41 [facility] Patient History Medical History (Updated 01/17/22 @ 08:55 by Lilibeth Stevens MD) Acute dehydration COVID-19 DVT prophylaxis Hypomagnesemia Migraine Multigravida Prior with demise Full Term demise in 2009 Sepsis Sickle cell trait Vomiting Surgical History No significant past surgical history Social History Smoking Status: Current every day smoker Tobacco Type: Cigarettes Cigarettes Per Day: 3; Second Hand Exposure: No; Hx Alcohol Use: No Hx Substance Use: No Preferred Language: Moroccan Communication Ability: Effective Asp Net Developer Required: No Beliefs That Will Affect Care: None marital status: Single Current Living Situation: Alone and Family Current Living Situation Comment: Pt states it is just her and her children Other Information That Helps Us Care for You: No Feels Safe at Home: Yes Safety Concerns: Feels Safe At This Time Assistive Devices: None 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
[2022-01-17] MEDS: LACTATED RINGER'S 1,000 ML IV PRN ×2 (09:35→13:28)
[2022-01-17 09:54] LABS: Hematocrit (blood only) 28.8 % (34.1-44.9); Hemoglobin 10.3 g/dl (12.0-16.0); Mean Corpuscular Hemoglobin 27.1 pg (25.0-34.0); Mean Corpuscular Hgb Conc 35.8 g/dL (32.0-36.0); Mean Corpuscular Volume 75.8 fL (80.0-100.0); Mean Platelet Volume 10.4 fL (9.4-12.3); Platelet Count 118 K/uL (130-400); Platelet Estimate Decreased (Normal); RDW Coefficient of Variation 16.8 % (11.5-14.5); RDW Standard Deviation 45.7 fL (36.4-46.3)
[2022-01-17] MEDS ORDERED: LIDOCAINE 2%/EPINEPHRINE 1:200,000 20 ML SDV ONE (13:09)
[2022-01-17] MEDS ORDERED: fentaNYL 2MCG/ML ROPIVACAINE 1.25MG/ML 100 ML BAG EPI ONE (13:09)
[2022-01-17] MEDS ORDERED: BUPIVACAINE 0.25% 30 ML VIAL ONE (13:09)
[2022-01-17] MEDS ORDERED: SODIUM CHLORIDE 0.9% INJ 10 ML VIAL ONE (13:09)
[2022-01-17] MEDS ORDERED: fentaNYL citrate 100 MCG/2 ML VIAL ONE (13:09)
[2022-01-17] MEDS ORDERED: ePHEDrine sulfate 50 MG/ML AMP ONE (13:09)
[2022-01-17] MEDS ORDERED: NALOXONE HCL 0.4 MG/1 ML VIAL/CARP IV PRN (13:26)
[2022-01-17] MEDS ORDERED: ONDANSETRON INJ 2 MG/ML 2 ML VIAL IV PRN (13:26)
[2022-01-17] MEDS ORDERED: NALOXONE HCL 1 MG in SODIUM CHLORIDE 0.9% 1000ML 1,000 ML IV PRN (13:26)
[2022-01-17] MEDS ORDERED: ePHEDrine sulfate 50 MG/ML AMP IV PRN (13:26)
[2022-01-17] MEDS ORDERED: diphenhydrAMINE 50 MG/ML VIAL IV PRN (13:26)
[2022-01-17] MEDS ORDERED: NALBUPHINE HCL INJ 10 MG/ML AMP IV PRN (13:26)
[2022-01-17] MEDS ORDERED: fentaNYL 2MCG/ML ROPIVACAINE 1.25MG/ML 100 ML BAG EPI PRN (13:26)
--- NOTE | 2022-01-17 13:29 | Anesthesiology Consultation ---
Date of Service January 17, 2022 Assessment & Plan Chart Review Chart Review: Patient NOT seen in Pre Admission Testing and Acceptable Risk for Labor Epidural Consults Requested none ASA ASA2 Proposed Anesthesia Anesthesia Type: Labor Epidural and CSE Risk / Benefits Reviewed With: PT / POA / Parent / Guardian, Accepts Plan and Informed Consent Obtained History Height/Weight Height: 5 ft 5 in Weight: 77.564 kg Allergies Allergy/AdvReac Type Severity Reaction Status Date / Time ibuprofen [From Motrin] Allergy Severe hives/throat Verified 08/15/21 21:41 swells Medications Active Medications Generic Name Dose Route Start Last Admin Trade Name Freq PRN Reason Stop Dose Admin Lactated Ringer's 1,000 mls @ 150 mls/hr 01/17/22 08:50 01/17/22 13:05 Lr IV 01/19/22 08:49 999 mls/hr .[id number] PRN Infusion L&D Protocol Protocol Oxytocin 30 units in 500 mls @ 4 mls/hr 01/17/22 08:51 01/17/22 10:13 Pitocin IV 01/19/22 08:50 0.24 units/hr .Q24H PRN 4 mls/hr Labor Induction/Augmentation Titration Protocol 0.24 UNITS/HR NPO Date Last Intake of Fluids: 01/17/22 Time Last Intake of Fluids: 12:00 Date Last Intake of Solids: 01/17/22 Time Last Intake of Solids: 07:00 Past Medical History Medical History Acute dehydration COVID-19 DVT prophylaxis Hypomagnesemia Migraine Multigravida Prior with demise Full Term demise in 2009 Sepsis Sickle cell trait Vomiting Exercise / Class Metabolic Activity II 4-5 Yardwork/Stairs/Walk up hill Past Surgical History Surgical History No significant past surgical history Past Anesthesia History No Hx of Anesthesia Complications and No Family Hx of Anesthesia Complications Social History Smoking Status: Current every day smoker tobacco type: cigarettes Smoking cigarettes per day: 3 Hx Alcohol Use: No Hx Substance Use: No substance use type: does not use Review of Systems no chest pain or sob Physical Exam Vital Signs Last Vital Signs Temp 36.9 C 01/17/22 12:50 Pulse 88 01/17/22 13:20 Resp 20 01/17/22 12:45 BP 126/87 01/17/22 13:04 Pulse Ox 100 01/17/22 13:20 ENMT Mouth: no TMJ abnormality Thyromental Distance: > or= 3.5 Finger Breadths Mallampati Class: II Neck normal visual inspection Respiratory normal respiratory effort Auscultation: lungs clear to auscultation bilaterally Cardiovascular Rate/Rhythm: regular rate and regular rhythm Musculoskeletal Spine: normal cervical ROM Neurologic moves all extremities Psychiatric Orientation: alert and oriented x 3 Testing Laboratory Results 01/17/22 09:09 Blood Type Cancelled 01/17/22 09:09 Blood Type O Positive 01/17/22 09:09 Antibody Screen Cancelled 01/17/22 09:09 Antibody Screen NEGATIVE 01/17/22 09:09
[2022-01-17] MEDS: AMOXICILLIN/CLAVULANATE 875 MG TAB PO SCH ×2 (13:47→18:49)
[2022-01-17] MEDS ORDERED: HYDROCORTISONE ACETATE 25 MG SUPP PR PRN (16:25)
[2022-01-17] MEDS ORDERED: BENZOCAINE 20% AER SPR 82.5 GM CAN EXT PRN (16:25)
[2022-01-17] MEDS ORDERED: METHYLERGONOVINE MALEATE 0.2 MG/ML AMP IM ONE (16:25)
[2022-01-17] MEDS ORDERED: OXYTOCIN 10 UNITS/ML 10ML VIAL IM ONE (16:25)
[2022-01-17] MEDS ORDERED: MEASLES, MUMPS & RUBELLA VIRUS VIAL SQ ONE (16:25)
[2022-01-17] MEDS ORDERED: bisacodyL 10 MG SUPP PR PRN (16:25)
[2022-01-17] MEDS ORDERED: IBUPROFEN 600 MG TAB PO PRN (16:25)
[2022-01-17] MEDS ORDERED: DIPHTHERIA/TETANUS/PERTUSSIS 0.5 ML SYR/VIAL IM ONE (16:25)
--- NOTE | 2022-01-17 16:31 | Delivery Summary ---
Vaginal Delivery Summary Date of Service January 17, 2022 Vaginal Delivery Summary Patient was found to be fully dilated and desire to push. She pushed through 2 contractions and delivered the head without difficulty. The shoulders came with left arm close to the baby's neck with minimal traction. And the baby was handed off to the mother by mouth and nose were suctioned and the cord was clamped times and cut at 1 minute delay. The baby was vigorously moving and crying at that point. The vagina and perineum were intact, no lacerations were found. Then the placenta was delivered spontaneously as intact and complete. Uterus was explored and found to be empty. Lower segment was cleared of all clots and debris's, EBL was 100 mL and the fundus was firm. No complications happened and I was present during whole procedure. The baby was a viable male , delivered at 1608 p.m., Apgars were 8/9 and weight is pending. At the end of the procedure sponge and instrument count was correct x2.
--- NOTE | 2022-01-17 17:33 | Anesthesia Procedure Note ---
Date of Service January 17, 2022 Anesthesia Post Epidural Note Vital Signs Vital Signs: Temp Pulse Resp BP Pulse Ox 36.9 C 84 18 130/96 99 01/17/22 12:50 01/17/22 17:29 01/17/22 16:57 01/17/22 17:29 01/17/22 16:18 Notes Mental Status: alert / awake / arousable and participated in evaluation Nausea / Vomiting: adequately controlled Pain: adequately controlled Airway Patency, RR, SpO2: stable & adequate BP & HR: stable & adequate Hydration State: stable & adequate Neuraxial Anesthesia: was administered and sensory block is resolving Anesthetic Complications: no major complications apparent and Pt Satisfied with anesthetic care Epidural: Removed without complications and With tip intact
[2022-01-17] MEDS: METHYLERGONOVINE MALEATE 0.2 MG TAB PO SCH ×3 (18:51→21:44)
[2022-01-17] MEDS: DOCUSATE SODIUM 100 MG CAP PO SCH (21:44)
[2022-01-17] MEDS: ACETAMINOPHEN W/CODEINE #3 1 TAB PO PRN (23:00)
[2022-01-18] MEDS: ACETAMINOPHEN W/CODEINE #3 1 TAB PO PRN ×3 (03:05→19:37)
[2022-01-18] MEDS: METHYLERGONOVINE MALEATE 0.2 MG TAB PO SCH ×3 (03:06→08:30)
[2022-01-18] MEDS ORDERED: METHYLERGONOVINE MALEATE 0.2 MG/ML AMP ONE (06:53)
[2022-01-18] MEDS ORDERED: OXYTOCIN 10 UNITS/ML VIAL ONE (06:53)
[2022-01-18 07:37] LABS: Hematocrit (blood only) 30.3 % (34.1-44.9); Hemoglobin 10.9 g/dl (12.0-16.0); Mean Corpuscular Hemoglobin 27.6 pg (25.0-34.0); Mean Corpuscular Volume 76.7 fL (80.0-100.0); RDW Coefficient of Variation 16.6 % (11.5-14.5); RDW Standard Deviation 45.7 fL (36.4-46.3); Red Blood Count 3.95 M/uL (3.93-5.22); White Blood Count 7.64 K/ul (4.8-10.8)
[2022-01-18 07:57] LABS: Platelet Count 114 K/uL (130-400)
[2022-01-18] MEDS: PRENATAL VITAMIN 1 TAB PO SCH (08:29)
[2022-01-18] MEDS: DOCUSATE SODIUM 100 MG CAP PO SCH ×2 (08:30→19:37)
[2022-01-18] MEDS: FERROUS SULFATE 325 MG TAB PO SCH (08:30)
[2022-01-18] MEDS: AMOXICILLIN/CLAVULANATE 875 MG TAB PO SCH ×2 (09:26→17:19)
--- NOTE | 2022-01-18 10:17 | Obstetrical Progress Note ---
Date of Service January 18, 2022 Subjective Ambulation: ambulating normally Voiding: no voiding problems Passing Gas:: Yes Diet Tolerance:: regular diet Lochia:: Small Feeding Type:: breast feeding still cramping Physical Exam Constitutional WD/WN, vitals as above Gastrointestinal (Abdomen) Inspection/Auscultation: abdomen normal to inspection abdomen soft and non-tender. fundus firm below U Musculoskeletal Extremities: extremities normal to inspection Neurologic patellar DTR's 2+ bilat, sensation intact Psychiatric A+Ox3, euthymic affect Results & Data ([facility]) Vital Signs (Past 12 Hours) Vital Signs Temp Pulse Resp BP Pulse Ox O2 Del Method 01/18/22 07:30 36.9 C 84 16 107/73 Room Air 01/18/22 03:15 37.1 C 85 18 123/74 Room Air 01/17/22 23:00 37.0 C 92 H 16 130/90 96 Room Air Laboratory Results Laboratory Results - last 24 hr 01/17/22 01/17/22 01/18/22 09:09 09:09 06:49 WBC 7.64 RBC 3.95 Hgb 10.9 L Hct 30.3 L MCV 76.7 L MCH 27.6 MCHC 36.0 RDW Std Deviation 45.7 RDW Coeff of Riana 16.6 H Plt Count 114 L Blood Type O Positive Cancelled Antibody Screen NEGATIVE Cancelled
[2022-01-18] MEDS: ACETAMINOPHEN 325 MG TAB PO PRN (13:33)
[2022-01-18] MEDS ORDERED: bisacodyL 5 MG TABEC PO SCH (20:00)
[2022-01-19 06:54] LABS: Hematocrit (blood only) 31.1 % (34.1-44.9); Hemoglobin 11.1 g/dl (12.0-16.0)
[2022-01-19] MEDS: PRENATAL VITAMIN 1 TAB PO SCH (09:16)
[2022-01-19] MEDS: ACETAMINOPHEN 325 MG TAB PO PRN (09:16)
[2022-01-19] MEDS: FERROUS SULFATE 325 MG TAB PO SCH (09:16)
[2022-01-19] MEDS: AMOXICILLIN/CLAVULANATE 875 MG TAB PO SCH (09:16)
[2022-01-19] MEDS: DOCUSATE SODIUM 100 MG CAP PO SCH (09:16)
--- NOTE | 2022-01-19 09:32 | Obstetrical Progress Note ---
Date of Service January 19, 2022 Assessment & Plan Admission and Anticipated Discharge Date Admission Date: January 17, 2022 Subjective Patient is seen and examined. She feels well, no complaints. Ambulating without dizziness Voiding without difficulty Tolerating regular diet with out N&V Bleeding is minimal No fever/ chills/ CP/ SOB/ N&V/ Leg pain Bottle feeding without problems Vital Signs Temp Pulse Resp BP O2 Del Method 01/19/22 07:45 36.9 C 86 18 119/80 Room Air 01/18/22 23:20 37.1 C 82 18 123/76 01/18/22 19:30 37.1 C 85 18 100/66 01/18/22 17:30 36.6 C 75 16 115/74 Room Air 01/18/22 12:05 36.8 C 76 18 102/61 Room Air Lab Results 01/17/22 01/17/22 01/17/22 Range/Units 09:09 09:09 09:09 WBC 7.20 (4.8-10.8) K/ul RBC 3.80 L (3.93-5.22) M/uL Hgb 10.3 L (12.0-16.0) g/dl Hct 28.8 L (34.1-44.9) % MCV 75.8 L (80.0-100.0) fL MCH 27.1 (25.0-34.0) pg MCHC 35.8 (32.0-36.0) g/dL RDW Std Deviation 45.7 (36.4-46.3) fL RDW Coeff of Riana 16.8 H (11.5-14.5) % Plt Count 118 L (130-400) K/uL MPV 10.4 (9.4-12.3) fL Platelet Estimate Decreased L (Normal) SARS-CoV-2, RNA, NAAT (NEGATIVE) Blood Type O Positive Cancelled Antibody Screen NEGATIVE Cancelled 01/17/22 01/18/22 01/19/22 Range/Units Unknown 06:49 06:36 WBC 7.64 (4.8-10.8) K/ul RBC 3.95 (3.93-5.22) M/uL Hgb 10.9 L 11.1 L (12.0-16.0) g/dl Hct 30.3 L 31.1 L (34.1-44.9) % MCV 76.7 L (80.0-100.0) fL MCH 27.6 (25.0-34.0) pg MCHC 36.0 (32.0-36.0) g/dL RDW Std Deviation 45.7 (36.4-46.3) fL RDW Coeff of Riana 16.6 H (11.5-14.5) % Plt Count 114 L (130-400) K/uL MPV (9.4-12.3) fL Platelet Estimate (Normal) SARS-CoV-2, RNA, NAAT NEGATIVE (NEGATIVE) Blood Type Antibody Screen PE: General: Alert, orientedx3, NAD Abd: soft, NT, fundus firm, below Umbilicus Perineum intact, Lochia rubra minimal Ext; NT, no edema AP: 31 yo s/p , ppd# 2 VSS Afebrile doing well Continue routine care All questions were answered D/C home , f/u in office Results & Data ([facility]) Vital Signs (Past 12 Hours) Vital Signs Temp Pulse Resp BP O2 Del Method 01/19/22 07:45 36.9 C 86 18 119/80 Room Air 01/18/22 23:20 37.1 C 82 18 123/76
== END 2022-01-19 14:35 | disposition home or self-care (01) | DRG 807 ==
LOC: 4S1 01-17 07:56 → 4E2 01-17 18:45